=== PATIENT | female | born 1975 | race Caucasian/White ===

== ENCOUNTER → 2024-09-24 | Outpatient (CLI) | payer MEDICARE ==
--- NOTE | 2024-09-24 13:24 | MR ---
EXAMINATION TYPE: MR brain/cspine wo/w DATE OF EXAM: 09/24/2024 12:48 PM COMPARISON: None. CLINICAL INDICATION: Female, 49 years old with history of R20.0 ANESTHESI G43.009 MIGRAINE W/O AURA, NOT INT; PHH, Migraines and stiffness in patient's neck x4 years TECHNIQUE: Multi planar, multi sequence imaging was performed through the brain including: T1, T2, Inversion rec overy, Diffusion weighted imaging, and gradient echo imaging. No gadolinium was given. Multi planar, multi sequence imaging was performed utilizing: T1-weighted, T2-weighted, and turbo inv ersion recovery imaging of the cervical spine. IV Contrast: 7ML mL Gadobutrol FINDINGS: The whitfield-white junctions, ventricular system, basal cisterns appear unremarkable. Minimal scattered foci of high T2 signal intensity are seen within the periventricular white matter. Midline structure s show no abnormality. Diffusion-weighted imaging shows no evidence of restricted diffusion. The susc eptibility weighted images do not reveal any evidence for micro-hemorrhage. There is enhancing mass at the left cerebellar pontine angle measuring 21 x 26 x 16 mm21 x 26 x 16 mm which does not enter internal auditory canal. There is somewhat homogenous postcontrast enhancement of this lesion. This is low T1 high T2 signal. The bone marrow signal is within normal limits. Paranasal sinuses and mastoid air cells: No significant paranasal sinus disease. Visualized orbits: Orbital contents are intact. Alignment: The cervical vertebral bodies have preserved heights. Alignment is within normal limits gi pam patient positioning. Bones: Scattered Modic endplate changes with osteophytes and disc space narrowing. Multilevel degener ative disc disease is noted and most pronounced at the C5-C7 vertebral levels. Large osteophytes proj ect anteriorly at C5-C7 into the posterior esophagus. Cord: The spinal cord is unremarkable with regards to their signal intensity and morphology. Discs: Multilevel disc desiccation is present. C2-C3: No significant disc pathology. The spinal canal is patent. Bilateral facet and uncovertebral joint arthropathy are present with moderate right and mild left neural foraminal stenosis. C3-C4: A disc osteophyte complex is present which minimally narrows the ventral subarachnoid space. Bilateral facet and uncovertebral joint arthropathy are present with moderate left and mild right ne ural foraminal stenosis. C4-C5: A disc osteophyte complex is present which minimally narrows the ventral subarachnoid space. Bilateral facet and uncovertebral joint arthropathy are present with moderate to severe right and mi ld left neural foraminal stenosis. C5-C6: A disc osteophyte complex is present which minimally narrows the ventral subarachnoid space. T here is mild impression upon the spinal cord on the left. Bilateral facet and uncovertebral joint a rthropathy are present with mild to moderate bilateral neural foraminal stenosis. C6-C7: A disc osteophyte complex is present which minimally narrows the ventral subarachnoid space th ere is mild impression upon the spinal cord on the right.. Bilateral facet and uncovertebral joint arthropathy are present with moderate right and mild left neural foraminal stenosis. C7-T1: No significant disc pathology. The spinal canal is patent. No neural foraminal stenosis. Other: None. IMPRESSION: 1. 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 This is not those enter the internal auditory canal definitive ly. Neurologic consultation for management recommended. Short-term follow-up MRI brain with contrast recommended. 2. No evidence for disc herniation or significant spinal canal stenosis. 3. 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 No evidence of acute/subacute infarct. 5. Minimal Nonspecific white matter changes possibly secondary to history of migraines. [facility], , 09/24/2024 1:21 PM
== END | disposition home or self-care (01) ==
LOC: RADMRIMAIN 11:29
PROVIDERS: ATTEND Psychiatry & Neurology Vascular Neurology
DX: M47.812 Spondylosis without myelopathy or radiculopathy, cervical region (principal); G43.009 Migraine without aura, not intractable, without status migrainosus; R20.0 Anesthesia of skin; R20.2 Paresthesia of skin; R90.82 White matter disease, unspecified; M50.31 Other cervical disc degeneration, high cervical region; M99.71 Connective tissue and disc stenosis of intervertebral foramina of cervical region; G93.89 Other specified disorders of brain
CPT/HCPCS: 70553; 72156; A9585